=== PATIENT | male | born 1935 ===

== ENCOUNTER 2017-02-10 16:19 | Observation (INO) | payer MEDICARE ==
[2017-02-10 16:35] VITALS: BMI 28.1
--- NOTE | 2017-02-10 17:08 | ED PDOC ---
Arrival/HPI - General Chief Complaint: High Blood Pressure Time Seen by Provider: 02/10/17 16:42 Historian: Patient - History of Present Illness Narrative History of Present Illness (Text): 02/10/17 17:03 81yo male with PMHx of COPD, Anxiety, and hypertension present with complaint of elevated BP, headache, palpitation, b/l LE cramping pain and swelling x weeks. The daughter who was by the bedside states patient was on antihypertensive few years ago, but stopped. States came to ED today because of the palpitation and worsening headache. Denies fever, chills, chest pain, orthopnea, LAMBERT, calf pain, diaphoresis, abdominal pain, nausea, vomiting, dizziness, visual change, focal neurological weakness. Past Medical History - Provider Review Nursing Documentation Reviewed: Yes - Pulmonary Hx Chronic Obstructive Pulmonary Disease (COPD): Yes - Musculoskeletal/Rheumatological Hx Falls: No - Psychiatric Hx Anxiety: Yes Hx Depression: No Hx Emotional Abuse: No Hx Physical Abuse: No Hx Substance Use: No - Suicidal Assessment Feels Threatened In Home Enviroment: No Family/Social History - Physician Review Nursing Documentation Reviewed: Yes Family/Social History: Unknown Family HX Smoking Status: Never Smoked Hx Alcohol Use: No Hx Substance Use: No Hx Substance Use Treatment: No Allergies/Home Meds Allergies/Adverse Reactions: Allergies No Known Allergies Allergy (Verified 02/10/17 16:35) Home Medications: Home Meds Medication Instructions Recorded Confirmed Budesonide [Pulmicort Respules] 0.25 mg IH BID 08/21/12 02/10/17 Levalbuterol HCl [Xopenex] 1.25 mg IH Q8 PRN 08/21/12 02/10/17 Tiotropium [Spiriva] 18 mcg IH DAILY 08/21/12 02/10/17 Alprazolam [Xanax] 0.5 mg PO DAILY PRN 02/10/17 02/10/17 Aspirin [Aspirin EC] 325 mg PO DAILY 02/10/17 02/10/17 Review of Systems - Physician Review All systems were reviewed & negative as marked: Yes - Review of Systems Constitutional: Normal Eyes: Normal ENT: Normal Respiratory: Normal Cardiovascular: Palpitations, Edema. absent: Chest Pain, Calf Pain, LAMBERT, Orthopnea, Syncope Gastrointestinal: Normal Genitourinary Male: Normal Musculoskeletal: Normal Skin: Normal Neurological: Normal Endocrine: Normal Hemo/Lymphatic: Normal Psychiatric: Normal Physical Exam Vital Signs Reviewed: Yes Vital Signs Temp Pulse Resp BP Pulse Ox 02/10/17 17:34 67 16 156/88 H 98 02/10/17 16:29 98 F 67 18 198/99 H 96 Temperature: Afebrile Blood Pressure: Hypertensive Pulse: Regular Respiratory Rate: Normal Appearance: Positive for: Well-Appearing, Non-Toxic, Comfortable Pain Distress: None Mental Status: Positive for: Alert and Oriented X 3 - Systems Exam Head: Present: Atraumatic, Normocephalic Pupils: Present: PERRL Extroacular Muscles: Present: EOMI Conjunctiva: Present: Normal Mouth: Present: Moist Mucous Membranes Neck: Present: Normal Range of Motion Respiratory/Chest: Present: Clear to Auscultation, Good Air Exchange. No: Respiratory Distress, Accessory Muscle Use Cardiovascular: Present: Regular Rate and Rhythm, Normal S1, S2. No: Murmurs Abdomen: Present: Normal Bowel Sounds. No: Tenderness, Distention, Peritoneal Signs Back: Present: Normal Inspection Upper Extremity: Present: Normal Inspection. No: Cyanosis, Edema Lower Extremity: Present: Edema (2+ nonpitting edema of b/l LE) Neurological: Present: GCS=15, CN II-XII Intact, Speech Normal Skin: Present: Warm, Dry, Normal Color. No: Rashes Psychiatric: Present: Alert, Oriented x 3, Normal Insight, Normal Concentration Medical Decision Making ED Course and Treatment: 02/10/17 19:23 Pt presented for stated history. His BP improved in ED. His lab was unremarkable. EKG sinus rhythm with 1st degree AV block. No ST changes. Head CT as noted below. - Negative for acute finding CXR - NAD Result was DW both pt and the family. He expressed concern on going home and having same symptoms, usually at night. states he lives alone and worried. FINDINGS: Brain: Volume loss. Mild chronic small vessel white matter ischemic changes. Ventricles: Unremarkable. No ventriculomegaly. Bones/joints: Unremarkable. No acute fracture. Soft tissues: Unremarkable. Vasculature: Calcification in the wall of the distal internal carotid arteries. Sinuses: Ethmoid sinus mucosal thickening. No fluid levels. Mastoid air cells: Unremarkable as visualized. No mastoid effusion. IMPRESSION: No acute intracranial findings. Nonacute findings as above. 02/10/17 21:[address] Zhang. PT was placed on OBS for possible evaluation by a Realty Loan Specialist tomorrow. - Lab Interpretations Lab Results: 02/10/17 17:10 02/10/17 18:30 Lab Results 02/10/17 19:26: Urine Color Yellow, Urine Appearance Clear, Urine pH 7.5, Ur Specific [place] 1.015, Urine Protein Negative, Urine Glucose (UA) Negative, Urine Ketones Negative, Urine Blood Negative, Urine Nitrate Negative, Urine Bilirubin Negative, Urine Urobilinogen 0.2, Ur Leukocyte Esterase Negative 02/10/17 18:30: Sodium 140, Potassium 3.8, Chloride 104, Carbon Dioxide 27, Anion Gap 13, BUN 12, Creatinine 0.9, Est GFR ( Amer) > 60, Est GFR (Non- Af Amer) > 60, Random Glucose 81, Calcium 9.0, Total Bilirubin 1.0, AST 26, ALT 32, Alkaline Phosphatase 45, Lactate Dehydrogenase 529, Total Creatine Kinase 282 H, CK-MB (CK-2) 3.8 H, CK-MB (CK-2) % Cancelled, Troponin I < 0.01, NT-Pro- B Natriuret Pep 163, Total Protein 6.5, Albumin 3.7, Globulin 2.8, Albumin/ Globulin Ratio 1.3 02/10/17 17:10: PT 14.0 H, INR 1.30 H, APTT 27.3 02/10/17 17:10: WBC 4.0 L, RBC 4.25, Hgb 14.6, Hct 42.6, MCV 100.2, MCH 34.4, MCHC 34.3, RDW 13.4, Plt Count 191, MPV 9.9, Gran % 45.1 L, Lymph % (Auto) 39.8 H, [place] % (Auto) 12.8 H, Eos % (Auto) 1.8, Baso % (Auto) 0.5, Gran # 1.80, Lymph # 1.6, [place] # 0.5, Eos # 0.1, Baso # 0.02 - RAD Interpretation Radiology Orders: 02/10/17 16:50 CHEST PORTABLE [RAD] Stat 02/10/17 16:51 HEAD W/O CONTRAST [CT] Stat DUPLEX LOWER EXTRM VEIN BILAT [US] Stat Disposition/Present on Arrival - Present on Arrival Any Indicators Present on Arrival: No History of DVT/PE: No History of Uncontrolled Diabetes: No Urinary Catheter: No History of Decub. Ulcer: No History Surgical Site Infection Following: None - Disposition Have Diagnosis and Disposition been Completed?: Yes Diagnosis: Palpitation, Hypertension, Headache, Anxiety Disposition: HOSPITALIZED Disposition Time: 20:00 Patient Problems: Current Active Problems Problem Status Onset Anxiety Acute Headache Acute Hypertension Acute Palpitation Acute Condition: FAIR
--- NOTE | 2017-02-10 17:16 | RAD ---
HISTORY: SOB COMPARISON: Comparison made with chest radiograph dated 07/24/2016 FINDINGS: LUNGS: Suspect minor bibasilar atelectasis PLEURA: No significant pleural effusion identified, no pneumothorax apparent. CARDIOVASCULAR: Heart size is upper limits of normal/ borderline enlarged. Aorta is slightly ectatic and uncoiled. OSSEOUS STRUCTURES: Mild multilevel degenerative spondylosis of the thoracic spine. There is a mild dextroscoliosis centered in the lower thoracic region. VISUALIZED UPPER ABDOMEN: Normal. OTHER FINDINGS: None. IMPRESSION: Suspect minor bibasilar atelectasis.
[2017-02-10 18:03] LABS: BASO # 0.02 K/mm3 (0.0-2.0); BASO % 0.5 % (0.0-3.0); EOS # 0.1 (0.0-0.7); EOS % 1.8 % (1.5-5.0); GRAN % 45.1 % (50.0-68.0); HEMOGLOBIN 14.6 gm/dL (14.0-18.0); LYMPH # 1.6 (1.2-3.4); LYMPH % 39.8 % (22.0-35.0); MEAN CELL VOLUME 100.2 fL (80.0-105.0); MEAN CORPUSCULAR HEMOGLOBIN 34.4 pg (25.0-35.0); MEAN CORPUSCULAR HGB CONC 34.3 g/dl (31.0-37.0); MEAN PLATELET VOLUME 9.9 fl (7.0-11.0); MONO # 0.5 (0.1-0.6); MONO % 12.8 % (1.0-6.0); PLATELET COUNT 191 10^3/uL (120.0-450.0); RBC 4.25 10^6/uL (3.5-6.1); RED CELL DISTRIBUTION WIDTH 13.4 % (11.5-14.5)
[2017-02-10 18:14] LABS: INR 1.3 (0.93-1.08); PARTIAL THROMBOPLASTIN TIME 27.3 Seconds (23.7-30.8)
[2017-02-10 18:51] LABS: ALB/GLOB RATIO 1.3 (1.1-1.8); ALBUMIN 3.7 g/dL (3.0-4.8); ALT/SGPT 32 U/L (7-56); AST/SGOT 26 U/L (15-59); BLOOD UREA NITROGEN 12 mg/dL (7-21); GFR AFRICAN-AMERICAN > 60; GFR NON-AFRICAN AMERICAN > 60
[2017-02-10 19:03] LABS: B-TYPE NATRIURETIC PEPTIDE 163 pg/mL (0-450)
[2017-02-10 19:07] LABS: CK-MB 3.8 ng/mL (0.0-3.6)
[2017-02-10 19:25] LABS: TROPONIN I < 0.01 ng/mL
[2017-02-10 20:09] LABS: PH,URINE 7.5 (4.7-8.0); URINE BILIRUBIN NEGATIVE (NEGATIVE); URINE BLOOD NEGATIVE (NEGATIVE); URINE GLUCOSE (UA) NEGATIVE (NEGATIVE); URINE LEUKOCYTE ESTERASE NEGATIVE Leu/uL (NEGATIVE); URINE NITRATE NEGATIVE (NEGATIVE); URINE PROTEIN NEGATIVE mg/dL (<30 mg/dL); URINE UROBILINOGEN 0.2 E.U./dL (<1 E.U./dL)
[2017-02-10 20:17] LABS: URINE APPEARANCE CLEAR (CLEAR); URINE COLOR YELLOW (YELLOW)
[2017-02-11] MEDS ORDERED: Pneumococcal 23-Valent Vaccine IM ONE (00:58)
[2017-02-11] MEDS ORDERED: Pantoprazole 40 mg EC Tab PO SCH (06:30)
--- NOTE | 2017-02-11 07:19 | CT ---
PROCEDURE: CT HEAD WITHOUT CONTRAST. HISTORY: Headache COMPARISON: None available. TECHNIQUE: Axial computed tomography images were obtained through the head/brain without intravenous contrast. Radiation dose: Total exam DLP = 774.23 mGy-cm. This CT exam was performed using one or more of the following dose reduction techniques: Automated exposure control, adjustment of the mA and/or kV according to patient size, and/or use of iterative reconstruction technique. FINDINGS: HEMORRHAGE: No intracranial hemorrhage. BRAIN: There are mild chronic microangiopathic changes. There is no mass, mass effect or abnormal extra-axial fluid collection. There is no territorial infarction. VENTRICLES: There is mild age-related global parenchymal volume loss and proportionate enlargement of the ventricles and cortical sulci. CALVARIUM: The skull base and calvarium are normal. PARANASAL SINUSES: Predominantly clear MASTOID AIR CELLS: Predominantly clear. OTHER FINDINGS: None. IMPRESSION: No acute intracranial abnormality. Mild chronic microangiopathic changes and mild age-related global parenchymal volume loss.
[2017-02-11 07:28] LABS: ALB/GLOB RATIO 1.4 (1.1-1.8); ALBUMIN 3.8 g/dL (3.0-4.8); ALT/SGPT 31 U/L (7-56); AST/SGOT 29 U/L (15-59); BLOOD UREA NITROGEN 11 mg/dL (7-21); CALCIUM 8.9 mg/dL (8.4-10.5); GFR AFRICAN-AMERICAN > 60; GFR NON-AFRICAN AMERICAN > 60; HDL CHOLESTEROL 70 mg/dL (29-60)
[2017-02-11 07:39] LABS: LDL CHOLESTEROL 115 mg/dL (0-129)
[2017-02-11] MEDS: Budesonide 0.25 mg/2 ml Inhal Susp UD IH SCH ×2 (07:42→19:44)
[2017-02-11 07:47] LABS: FREE T4 1.08 ng/dL (0.78-2.19)
[2017-02-11 08:23] LABS: TROPONIN I < 0.01 ng/mL
[2017-02-11 08:25] LABS: CK-MB 4.3 ng/mL (0.0-3.6)
--- NOTE | 2017-02-11 08:57 | US ---
HISTORY: Leg pain and swelling. Evaluate for DVT PHYSICIAN(S): Lam Grider MD. TECHNIQUE: Duplex sonography and color-flow Doppler with graded compression were used to evaluate the deep venous systems of both lower extremities. FINDINGS: The visualized deep venous systems of both lower extremities are sonographically normal and compressible. Normal wave forms and augmentation are seen. There is no sonographic evidence for deep venous thrombosis in the visualized segments of both lower extremities. IMPRESSION: No sonographic evidence for deep venous thrombosis in the visualized segments of both lower extremities.
[2017-02-11] MEDS: Metoprolol Succinate 25 mg XL Tab PO SCH (09:02)
[2017-02-11] MEDS ORDERED: Aminophylline 25 mg/ml Inj ONE (11:21)
[2017-02-11] MEDS: Aspirin 325 mg EC Tablets PO SCH (14:38)
[2017-02-11] MEDS: Tiotropium 18 mcg Cap For Inhalation IH SCH (14:39)
--- NOTE | 2017-02-11 17:17 | CARD ---
APPROVED REPORT EKG Measurement Heart [id number] <Conclusion> Sinus rhythm with 1st degree AV block Otherwise normal ECG
[2017-02-11 18:28] VITALS: RESP 18
--- NOTE | 2017-02-11 19:08 | CARD ---
APPROVED REPORT EXAM: Two-dimensional and M-mode echocardiogram with Doppler and color Doppler. INDICATION Chest Pain 2D DIMENSIONS Left Atrium (2D)4.2 (1.6-4.0cm)IVSd1.3 (0.7-1.1cm) LVDd3.4 (3.9-5.9cm)PWd1.1 (0.7-1.1cm) LVDs2.2 (2.5-4.0cm)FS (%) 36.0 % LVEF (%)66.8 (>50%) M-Mode DIMENSIONS Aortic Root2.40 (2.2-3.7cm)Aortic Cusp Exc.1.30 (1.5-2.0cm) Aortic Valve AoV Peak Abaqrdpk917.0cm/Kassandra Peak GR.8mmHg Mitral Valve MV E Jbalehkz21.7cm/sMV A Bhogngim054.0cm/sE/A ratio0.6 TDI E/Lateral E'0.0E/Medial E'0.0 Tricuspid Valve TR Peak Jyoxszqh191kd/sRAP [id number] Peak Gr.14mmHg [id number] LEFT VENTRICLE The left ventricle is normal size. There is borderline to mild concentric left ventricular hypertrophy. The left ventricular function is normal. EF-55-60% There is normal LV segmental wall motion. Transmitral Doppler flow pattern is Grade III-reversible restrictive diastolic dysfunction. No left ventricle thrombus noted on this study. There is no ventricular septal defect visualized. There is no left ventricular aneurysm. There is no mass noted in the left ventricle. RIGHT VENTRICLE The right ventricle is normal size. There is normal right ventricular wall thickness. The right ventricular systolic function is normal. ATRIA The left atrium is mildly dilated. The right atrium size is normal. The interatrial septum is intact with no evidence for an atrial septal defect. AORTIC VALVE The aortic valve is thickened but opens well. The aortic valve is moderately sclerotic. There is trace aortic regurgitation. There is no aortic valvular stenosis. There is no aortic valvular vegetation. MITRAL VALVE The mitral valve is thickened but opens well. Mitral regurgitation is trace. There is no mitral valve stenosis. There is no evidence of mitral valve prolapse. TRICUSPID VALVE The tricuspid valve leaflets are thickened , but open well. There is trace to mild tricuspid regurgitation.RVSP-24mmof hg. There is no tricuspid valve stenosis. There is no tricuspid valve prolapse or vegetation. PULMONIC VALVE The pulmonic valve is mildly thickened. There is trace pulmonic valvular regurgitation. There is no pulmonic valvular stenosis. GREAT VESSELS The aortic root is normal in size. The ascending aorta is normal in size. The pulmonary artery is normal. The IVC is normal in size and collapses >50% with inspiration. PERICARDIAL EFFUSION There is no pleural effusion. There is no pericardial effusion. <Conclusion> The left ventricle is normal size. There is borderline to mild concentric left ventricular hypertrophy. The left ventricular function is normal. EF-55-60% There is trace aortic regurgitation. There is no aortic valvular stenosis. Mitral regurgitation is trace. There is trace to mild tricuspid regurgitation.RVSP-24mmof hg. The IVC is normal in size and collapses >50% with inspiration. TDS poor sonic window.
[2017-02-11] MEDS ORDERED: Simethicone 40 mg/0.6 ml Liquid (30 ml) PO STA (19:22)
--- NOTE | 2017-02-11 21:25 | CARD ---
APPROVED REPORT Protocol: LEXISCAN Test Type: Lexiscan Sestamibi Stress Test Attending Physician: Dr. Sherri Kruger Referring Physician: Dr. Gibson Reagan Test Indications: Chest Pain Height:5 ft 7 in Weight:180lbs Medications: Xanax, Aspirin, Budesonide, Metoprolol, Protonix, Spiriva Medical History: 81 y/o male with a history of htn, COPD, anxiety disorder Target HR: 139 bpm Resting ECG: RSR. Resting Heart Rate: 61 bpm Resting Blood Pressure: 132/84mmHg Submaximum (85%): 118 bpm PROCEDURE Pharmacologic stress testing was performed using 0.4mg per 5ml of regadenoson given intravenously over 7-10 seconds. Reversal agent aminophyline 150 mg, given intravenously for Chest Pain. POST EXERCISE Reason for Termination: Protocol completed Target HR: No Max HR: 63 bpm 83% of Maximum Predicted HR: 139 bpm Exercise duration: 00:31 min:sec, 0 Stage Exercise capacity: 1.0METs Max Blood Pressure: 142/76mmHg Blood Pressure response to exercise: normal resting BP - appropriate response Heart Rate response to exercise: appropriate Chest Pain: Yes, Freedom Pressure like Chest Pain. Angina index: 0 Arrhythmia: No, none ST Change: No, none Deviation: 0 mm INTERPRETATION Stress EKG Conclusion: IV LEXISCAN NUCLEAR STRESS TEST DURING WHICH PATIENT FELT PRESSURE LIKE CHEST PAIN. NO ST-T CHANGES SEEN. NUCLEAR SCAN REPORT PENDING. Signed by Sherri Kruger Electronically Approved: 02/11/2017 13:01:44 EXAM: Myocardial Perfusion REST/STRESS Stress Test Type: Pharmacologic Imaging Protocol Rest Spect myocardial perfusion imaging was performed in supine position 55 minutes following the injection of 10.9 mCi of Tc-99 Myoview. At peak stress, the patient was injected intravenously with 30.4mCi of Tc-99 tetrofosmin after an infusion time of 0 minutes and 10 seconds. Gated Stress Spect was performed 65 minutes after intravenous Tc-99 Myoview injection. The images were gated to evaluate regional wall motion and calculate ventricular ejection fraction.Images were reconstructed using backfilter projection method in short horizontal and verticle long axis. Spect slices were generated. LV Perfusion The quality of the study is good. The left ventricle is normal in size. The right ventricle is unremarkable. The lung uptake is within normal limits. The distribution of tracer reveals normal uptake pattern throughout the LV myocardium on the stress study. The rest myocardial perfusion study shows no significant change. Wall Motion Wall motion study shows good contractility of the left ventricle. LVEF = 76%. Conclusion 1. Normal SPECT myocardial perfusion study. 2. Normal gated wall motion of the left ventricle. 3. In comparison with the last study of 09/11/2012, there is no significant change
[2017-02-12] MEDS: Levalbuterol 1.25 MG/3 ML Inhal Soln UD IH SCH ×3 (01:10→13:15)
--- NOTE | 2017-02-12 01:14 | HP ---
HISTORY OF PRESENT ILLNESS: The patient is an 81-year-old was brought to emergency room by the family. He thought his blood pressure was high. He was feeling anxious. He did have miscellaneous complaints including palpitation and he was having headache. He also mentioned that his legs were cramping off and on for a week. According to daughters, the patient used to be on antihypertensive, but it was stopped by his physician. The patient denies any fever, chills. No nausea, vomiting or diarrhea. PAST MEDICAL HISTORY: Significant for hypertension, COPD, history of anxiety disorder. ALLERGIES: Not allergic to any medication. MEDICATION AT HOME: He is on Pulmicort, he is on Xopenex, Xanax 0.5 mg b.i.d. p.r.n., aspirin 325 mg daily, Spiriva 18 mcg daily. REVIEW OF SYSTEMS: Significant for feeling anxious and palpitation off and on. PHYSICAL EXAMINATION GENERAL: He is awake and alert, communicative. VITAL SIGNS: He is afebrile, pulse 63, respirations 20, blood pressure 149/93. LUNGS: Bilateral fair airflow. No rhonchi or crackles. HEART: S1 and S2 audible. ABDOMEN: Soft, nontender. No hepatosplenomegaly. NEUROLOGIC: The patient is awake and alert, able to communicate. LABORATORY DATA: WBC is 4.0, hemoglobin 14, hematocrit 42, platelets 191. PT is 14.0 and INR 1.03. Chemistry; Sodium 140, potassium 4.1, chloride 106, CO2 of 24, BUN 11, creatinine 0.8, blood sugar of 78. CPK 271, MB is 4.3. Two sets of troponins are negative. Urinalysis is unremarkable. CT scan of the head is negative. Bilateral leg Doppler negative for DVT. CT of the head only shows chronic microangiopathic changes that is with global parenchymal loss. There is no sonographic evidence of deep venous thrombosis in the visualized segment on both lower extremities. ASSESSMENT: 1. Chest pain. 2. Palpitations. 3. Headache. 4. Hypertension. 5. Hyperlipidemia. 6. History of chronic obstructive pulmonary disease. PLAN: We are going to start the patient on metoprolol and start him on losartan. The patient is currently having stress test. If his stress test is okay, he can be discharged later on today and he will follow up with his PMD within a week or two. Gibson Reagan MD [facility] # [id number]
[2017-02-12 05:55] VITALS: O2SAT 99
[2017-02-12] MEDS ORDERED: Pantoprazole 40 mg EC Tab PO SCH (06:00)
[2017-02-12] MEDS: Budesonide 0.25 mg/2 ml Inhal Susp UD IH SCH (07:43)
[2017-02-12] MEDS: Metoprolol Succinate 25 mg XL Tab PO SCH (08:16)
--- NOTE | 2017-02-12 08:44 | PN ---
DATE: 02/11/2017 REASON FOR THE CONSULTATION AND FOLLOWUP: Shortness of breath, difficulty in sleeping, emphysema and COPD. BRIEF CLINICAL HISTORY: This is an 81-year-old male with a past medical history of COPD, asthma, emphysema, anxiety disorder, hypertension, came in with a complaint of difficulty in sleeping, sleeps for 2 hours a day, shortness of breath. Denies any chest pain. Denies any palpitation. Sometimes also complains of dyspnea on exertion and chest pain on exertion on walking 2 to 3 blocks. Denies any PND or orthopnea. PAST MEDICAL HISTORY: Significant for COPD and emphysema. SOCIAL HISTORY: Denies any smoking. Denies any history of alcohol abuse.. PAST SURGICAL HISTORY: Significant for hernia surgery many years ago. History of *------* 5 years ago. CURRENT MEDICATIONS: The patient is taking Pulmicort, aspirin, Xanax, Spiriva and Xopenex. ALLERGIES: NO KNOWN DRUG ALLERGIES. REVIEW OF SYSTEMS: As per HPI. PHYSICAL EXAMINATION VITAL SIGNS: Temperature afebrile, heart rate 66, blood pressure 149/93. HEENT: PERRLA. Extraocular muscles intact. NECK: Supple. No carotid bruit or thyromegaly CHEST: Clear to auscultation. HEART: S1 and S2 regular. ABDOMEN: Soft. EXTREMITIES: Clubbing and cyanosis negative. LABORATORY DATA: Blood workup as follows: Chemistry shows sodium 140, potassium 4.0, chloride 106, carbon dioxide 24, anion gap of 14, BUN 11 and creatinine 0.8. Troponin 0.01. Total protein 6.4, albumin 3.8, albumin globulin ratio 1.4. Cholesterol; LDL 199, HDL 470, TSH 0.22. WBC 4, hemoglobin 14.3, hematocrit 42.6 and platelet count 191. IMPRESSION: Asthma, chronic obstructive pulmonary disease, so far no evidence of myocardial infarction, uncontrolled hypertension, obesity. RECOMMENDATION: Get echo stress test, lipid profile, TSH and hemoglobin A1c. Further recommendation upon initial workup. We will follow with you. Thank you *------* in taking care of Mark Hillman. Sherri Hutchinson MD [facility] # [id number]
[2017-02-12] MEDS: Aspirin 325 mg EC Tablets PO SCH (10:17)
[2017-02-12] MEDS: Tiotropium 18 mcg Cap For Inhalation IH SCH (10:17)
[2017-02-12 11:50] VITALS: BP 113/71; PULSE 67; TEMP 98.3
[2017-02-12] MEDS ORDERED: Barium Sulfate Susp 2.1% w/v, 2.0% w/w 450 mL Bottle PO ONE (12:14)
--- NOTE | 2017-02-12 17:16 | PN ---
DATE: 02/12/2017 REASON FOR CONSULTATION AND FOLLOWUP: Shortness of breath, difficulty in sleeping, emphysema, COPD, rule out underlying coronary artery disease. BRIEF CLINICAL HISTORY: This is an 81-year-old male with past medical history significant for COPD, asthma, emphysema, anxiety disorder, hypertension, came in with complaint of difficulty in sleeping, sleeps for two hours and wakes up with shortness of breath. Denies any chest pain. Denies any palpitation. The patient underwent an echo and a stress test which was negative. Still complained of difficulty in sleeping. PHYSICAL EXAMINATION: As follows, VITAL SIGNS: Temperature afebrile, heart rate 63, blood pressure 113/75. HEENT: PERRLA. EOM intact. NECK: Supple. No carotid bruit. No thyromegaly. CARDIOPULMONARY: Heart S1, S2, regular. LUNGS: Chest clear to auscultation. ABDOMEN: Soft. EXTREMITIES: Clubbing and cyanosis negative. LABORATORY DATA: Blood workup, WBC 4, hemoglobin 14.6, hematocrit 42.6, platelet count 191. Chemistry shows sodium 140, potassium 4.0, chloride 106, carbon dioxide 24, and anion gap of 14, BUN 11, creatinine 0.8, troponin 0.01. No evidence of acute LA. TSH 1.22. Cholesterol total 199, LDL 115, HDL 70, triglycerides 57. On 02/11/2017, normal myocardial perfusion study in comparison to last study 09/11/2012, there is no significant change. Ejection fraction reported at 76%. The patient had echocardiography done yesterday that showed ejection fraction 55% to 60%, no aortic valve stenosis, trace aortic regurgitation, [id number] tricuspid regurgitation with pressure of 24, trace mitral regurgitation. IMPRESSION: An 81-year-old male with a past medical history significant for chronic obstructive pulmonary disease, asthma, emphysema, anxiety disorder, admitted with difficulty in sleeping and underwent noninvasive workup to rule out coronary artery disease as well as negative myocardial perfusion study, preserved left ventricular function, unchanged from 2013. Echocardiogram shows preserved left ventricular function, trace mitral regurgitation, trace tricuspid regurgitation, trace aortic regurgitation. No evidence of aortic stenosis, hypertension, hyperlipidemia. RECOMMENDATION: Strongly consider sleep study and pulmonary evaluation. We will discontinue telemetry, further recommendation on the hospital course *------* stable. No further cardiac workup is planned or warranted. Sherri Hutchinson MD [facility] # [id number]
--- NOTE | 2017-02-12 17:18 | CT ---
PROCEDURE: CT Abdomen and Pelvis with contrast HISTORY: abdominal distention COMPARISON: None. TECHNIQUE: Contrast dose: Spell IUD Radiation dose: Total exam DLP = mGy-cm. This CT exam was performed using one or more of the following dose reduction techniques: Automated exposure control, adjustment of the mA and/or kV according to patient size, and/or use of iterative reconstruction technique. FINDINGS: LOWER THORAX: Unremarkable. LIVER: Unremarkable. No gross lesion or ductal dilatation. GALLBLADDER AND BILE DUCTS: Cholelithiasis without CT evidence of acute cholecystitis. PANCREAS: Unremarkable. No gross lesion or ductal dilatation. SPLEEN: Unremarkable. ADRENALS: Unremarkable. No mass. KIDNEYS AND URETERS: Unremarkable. No hydronephrosis. No solid mass. VASCULATURE: Unremarkable. No aortic aneurysm. BOWEL: Unremarkable. No obstruction. No gross mural thickening. Diverticulosis without an acute inflammatory component or other associated pathologic process. APPENDIX: Normal appendix. PERITONEUM: Unremarkable. No free fluid. No free air. LYMPH NODES: Unremarkable. No enlarged lymph nodes. BLADDER: Unremarkable. REPRODUCTIVE: Unremarkable. BONES: No acute fracture. OTHER FINDINGS: None. IMPRESSION: Cholelithiasis without CT evidence of acute cholecystitis. Otherwise unremarkable study.
--- NOTE | 2017-02-13 03:18 | CON ---
REASON FOR CONSULTATION: Seen and examined at the bedside earlier today, request for consult is for abdominal bloating. HISTORY OF PRESENT ILLNESS: This is an 81-year-old male with a past medical history of COPD, anxiety, and hypertension, brought to the emergency room by his family for elevated blood pressure. The patient also was complaining of shortness of breath, palpitations, and feeling anxious. The patient had a stress test yesterday, which was normal. The patient complained yesterday of abdominal bloating even after bowel movement. The patient reports that he gets intermittent abdominal bloating for at least the past 2 months, but noticed that it is more frequent when he does have a bowel movement, it is formed stool, but he passes a lot of gas. Denies any nausea. No vomiting. No complaints of abdominal pain or symptoms of dyspepsia. He did have a colonoscopy at least 6 years ago for screening and does not recall any polyps or other acute findings. Denies any weight loss or loss of appetite. No complaints of postprandial abdominal bloating. The patient states that he had allergy test done a few years ago and he was told to stay away from milk and shrimp, but he still consumes milk and eats ice-cream with no problems and occasionally does have shrimp and no allergic reactions as per the patient. PAST MEDICAL HISTORY: As stated above, COPD, anxiety, and hypertension. The patient is currently off antihypertensive medication. SURGICAL HISTORY: He had a hernia repair. SOCIAL HISTORY: Denies any history of smoking. Drinks alcohol socially. Denies any substance abuse. FAMILY HISTORY: Mother with Alzheimer's. He had a son who had liver disease and at age 47. ALLERGIES: No known drug allergies. MEDICATIONS: Reviewed as per SEP. REVIEW OF SYSTEMS: Systems reviewed with positive findings, see HPI. PHYSICAL EXAMINATION: VITAL SIGNS: Temperature is 98.3, blood pressure is 113/71, pulse 67, respirations 18, 99% on room air. HEENT: Sclerae are anicteric. NECK: Supple. CARDIAC: S1, S2. LUNGS: With decrease breath sounds, but good air entry. No rales or wheezes. ABDOMEN: With bowel sounds, it is distended, but soft. Nontender on deep palpation. No rebound, guarding, or organomegaly. EXTREMITIES: Positive pedal pulses. No edema. NEUROLOGIC: Awake, alert, and oriented. LABORATORY DATA: CBC drawn on 02/10/2017, WBC 4.0, H and H are 14.6 and 42.6, platelets are 191. PT is 14.0, INR is 1.30, PTT 27.3. Chemistry, this is reviewed from 02/11/2017, sodium 140, potassium 4.1, BUN 11, creatinine 0.8. LFTs are within normal limits. His last total CK is 271. The CK-MB is 43. Troponin is negative x2. Albumin is 3.8. He had thyroid panel done and his free T4 is 1.08, TSH is 1.22. Urine: Leukocyte esterase is negative; negative for blood, protein, and glucose. The patient did have a head CT done on admission for headache and it showed chronic microangiopathic changes, no mass, no acute intracranial abnormality. ASSESSMENT: This is an 81-year-old male with a past medical history of hypertension, currently off antihypertensives as per his doctor's orders; history of chronic obstructive pulmonary disease; and anxiety disorder, who comes to the emergency room with complaints of shortness of breath, chest pain, and palpitations. He had a stress test done, which was negative. He did complain of abdominal bloating. Last colonoscopy was about 6 years ago with no acute findings. The patient states he has had allergy tests and was told to stay away from milk and shrimp, but the patient actively eats these things with no complaints. PLAN: We will request for celiac disease panel and request for CT scan of the abdomen and pelvis with only oral contrast for further evaluation. After review of this, the patient may benefit from GI workup, which can be done as an outpatient. I spoke to the patient regarding this. He will likely be discharged today. He can follow up in our outpatient office. Thank you for this consult and for allowing us to participate in your patient's care. We will make further recommendations based upon the patient 's clinical course. The patient was seen and case discussed with Dr. Hutchinson. RUEL Keys
--- NOTE | 2017-02-13 07:34 | DS ---
HISTORY OF PRESENT ILLNESS: The patient is 81 years old, seen and examined, complained of feeling lightheaded, otherwise, no chest pain, no shortness of breath. Complained of having white coating on the tongue. No chest pain. No shortness of breath. No cough. No congestion. PHYSICAL EXAMINATION: VITAL SIGNS: He is afebrile, pulse 67, respirations 18 and blood pressure 113/71. LUNGS: Bilateral fair airflow. No rhonchi or crackle. HEART: S1 and S2 audible. ABDOMEN: Soft and nontender. No rebound. No guarding. NEUROLOGIC: He is awake and alert, communicative. LABORATORY DATA: Two sets of cardiac enzymes are negative. Stress test is unremarkable. Urinalysis is unremarkable. CT scan of the head is negative. ASSESSMENT: 1. Uncontrolled hypertension. Upon arrival in the emergency room, his blood pressure was 198/99. The patient states he was on blood pressure medications, then he was taken off of it. However, today he looks hemodynamically stable. Chest pain, pressure and palpitation probably secondary to uncontrolled hypertension. Stress test is negative. 2. History of hypertension. 3. Palpitation. Although it is a subjective feeling, however, the patient's heart rate has been under good control. 4. History of chronic obstructive pulmonary disease. 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 PLAN: The patient is going to be discharged home on Norvasc 5 mg daily. The patient is familiar with that medicine. He has taken it in the past, so he was given prescription of 5 mg Norvasc daily. He was given prescription of metoprolol 25 at bedtime, and he is being discharged on Mycelex Jennifer to use every 4 to 5 hours for a week, and he will follow with Dr. Call as an outpatient. Gibson Reagan MD
== END 2017-02-12 17:40 | disposition home or self-care (01) ==
LOC: ED 16:19 → ERH 20:05 → 2RNO 22:27
PROVIDERS: ADMIT Internal Medicine; ATTEND Internal Medicine
DX: R00.2 Palpitations (principal); I10 Essential (primary) hypertension; R51 Headache; F41.9 Anxiety disorder, unspecified; J44.9 Chronic obstructive pulmonary disease, unspecified
CPT/HCPCS: 36415; 70450; 71010; 74176; 78452; 80053; 80061; 81003; 82550; 82553; 82784; 83036; 83516; 83615; 83880; 84439; 84443; 84484; 85025; 85610; 85730; 93005; 93017; 93306; 93970; 94640; 94760; 97116; 97161; 99285; A9502; G0378; G8978; G8979; G8980

== ENCOUNTER 2018-04-29 09:10 | Emergency (ER) | payer MEDICARE ==
[2018-04-29 09:10] VITALS: BMI 28.1
--- NOTE | 2018-04-29 09:40 | ED PDOC ---
Arrival/HPI - General Chief Complaint: High Blood Pressure Time Seen by Provider: 04/29/18 09:15 Historian: Patient, Family (Son) - History of Present Illness Time/Duration: Other (Several days) Symptom Onset: Gradual Symptom Course: Unchanged Quality: Aching Severity Level: Mild Associated Symptoms (Text): 04/29/18 09:32 Patient complains of a several day history of a posterior headache. He reports that he has been having trouble sleeping. He has no trouble falling asleep, but he has trouble staying asleep. The patient's son pulled me aside and reported that the patient has a history of sleep apnea and has a CPAP machine which he does not use. He has chronic shortness of breath, no different from usual. No chest pain. No abdominal pain nausea or vomiting. No numbness tingling or paresthesias. There is generalized, but no focal, weakness. No head trauma. No neck pain. No fever or chills. No cough congestion or URI. He also had elevated blood pressure for the last several days. He states that he gets anxious. Past Medical History - Provider Review Nursing Documentation Reviewed: Yes - Infectious Disease Hx of Infectious Diseases: None - Cardiac Hx Cardiac Disorders: Yes Hx Hypertension: Yes - Pulmonary Hx Respiratory Disorders: Yes Hx Emphysema: Yes Other/Comment: Pt. has respiratory MD. - Neurological Hx Neurological Disorder: No - HEENT Hx HEENT Disorder: No Other/Comment: Pt. observed to have mild [place]. - Renal Hx Renal Disorder: No - Endocrine/Metabolic Hx Endocrine Disorders: No - Hematological/Oncological Hx Blood Disorders: No - Integumentary Hx Dermatological Disorder: No - Musculoskeletal/Rheumatological Hx Musculoskeletal Disorders: No Hx Falls: No - Gastrointestinal Hx Gastrointestinal Disorders: No - Genitourinary/Gynecological Hx Genitourinary Disorders: No - Psychiatric Hx Psychophysiologic Disorder: Yes Hx Anxiety: Yes Hx Substance Use: No - Anesthesia Hx Anesthesia: No Hx Anesthesia Reactions: No - Suicidal Assessment Feels Threatened In Home Enviroment: No Family/Social History - Physician Review Nursing Documentation Reviewed: Yes Family/Social History: Unknown Family HX Smoking Status: Never Smoked Hx Alcohol Use: No Hx Substance Use: No Hx Substance Use Treatment: No Allergies/Home Meds Allergies/Adverse Reactions: Allergies No Known Allergies Allergy (Verified 02/10/17 16:35) Home Medications: Home Meds Medication Instructions Recorded Confirmed Budesonide [Pulmicort Respules] 0.25 mg IH BID 08/21/12 04/29/18 Tiotropium [Spiriva] 18 mcg IH DAILY 08/21/12 04/29/18 Alprazolam [Xanax] 0.5 mg PO DAILY PRN 02/10/17 04/29/18 Escitalopram [Lexapro] 10 mg PO DAILY 04/29/18 04/29/18 Review of Systems - Physician Review All systems were reviewed & negative as marked: Yes - Review of Systems Constitutional: absent: Fatigue, Fevers Respiratory: SOB. absent: Cough, Sputum, Wheezing Cardiovascular: absent: Chest Pain, Palpitations, Syncope Gastrointestinal: absent: Abdominal Pain, Constipation, Diarrhea, Nausea, Vomiting, Anorexia Genitourinary Male: absent: Dysuria, Frequency, Hematuria Neurological: Headache. absent: Dizziness, Focal Weakness, Gait Changes Physical Exam Vital Signs Reviewed: Yes Vital Signs Temp Pulse Resp BP Pulse Ox 04/29/18 09:23 98.1 F 90 18 156/106 H 98 Temperature: Afebrile Blood Pressure: Hypertensive Pulse: Regular Respiratory Rate: Normal Appearance: Positive for: Well-Appearing, Non-Toxic, Comfortable Pain Distress: None Mental Status: Positive for: Alert and Oriented X 3 - Systems Exam Head: Present: Atraumatic, Normocephalic Pupils: Present: PERRL Extroacular Muscles: Present: EOMI Conjunctiva: Present: Normal Mouth: Present: Moist Mucous Membranes Pharnyx: No: ERYTHEMA, EXUDATE, TONSILS ENLARGED Neck: Present: Normal Range of Motion Respiratory/Chest: Present: Clear to Auscultation, Good Air Exchange. No: Respiratory Distress, Accessory Muscle Use Cardiovascular: Present: Regular Rate and Rhythm, Normal S1, S2. No: Murmurs Abdomen: No: Tenderness, Distention, Peritoneal Signs, Rebound, Guarding Upper Extremity: Present: Normal Inspection. No: Cyanosis, Edema Lower Extremity: Present: Edema (1+ bilateral lower extremity edema) Neurological: Present: GCS=15, CN II-XII Intact, Speech Normal, Motor Func Grossly Intact Skin: Present: Warm, Dry, Normal Color. No: Rashes Psychiatric: Present: Alert, Oriented x 3, Normal Insight, Normal Concentration Medical Decision Making ED Course and Treatment: 10/02/18 10:45 EKG shows normal sinus rhythm rate approximately 60 with a primary AV block and no acute ST or T-wave changes - RAD Interpretation Radiology Orders: CT scan of the head as read by the radiologist shows no acute findings. X-ray chest one view as read by the radiologist shows no acute findings. CTA of the chest is read by the radiologist as negative for pulmonary embolus and positive for cholelithiasis with no evidence of acute cholecystitis. Director Social Welfare: Radiologist - EKG Interpretation Interpreted by ED Physician: Yes Type: 12 lead EKG - Scribe Statement The provider has reviewed the documentation as recorded by the Scribe Sharon Turkjh All medical record entries made by the Scribe were at my direction and personally dictated by me. I have reviewed the chart and agree that the record accurately reflects my personal performance of the history, physical exam, medical decision making, and the department course for this patient. I have also personally directed, reviewed, and agree with the discharge instructions and disposition. Disposition/Present on Arrival - Present on Arrival Any Indicators Present on Arrival: No History of DVT/PE: No History of Uncontrolled Diabetes: No Urinary Catheter: No History of Decub. Ulcer: No History Surgical Site Infection Following: None - Disposition Have Diagnosis and Disposition been Completed?: Yes Diagnosis: Chronic obstructive lung disease, Headache, Hypertension, Anxiety, Insomnia Disposition: HOME/ ROUTINE Disposition Time: 13:13 Patient Plan: Discharge Condition: GOOD Discharge Instructions (ExitCare): Tension Headache, High Blood Pressure in Adults, Chronic Obstructive Pulmonary Disease (COPD), Including Emphysema Additional Instructions: Use your CPAP machine as prescribed. Tylenol or Advil as directed on bottle as needed. Follow-up with PMD. Follow up in ER as needed. Referrals: Saman Call MD [Family Provider] - Follow up with primary Forms: [employer] ([place]ak[place])
[2018-04-29 10:33] LABS: BASO # 0.02 K/mm3 (0.0-2.0); BASO % 0.5 % (0.0-3.0); EOS # 0.2 (0.0-0.7); EOS % 4.5 % (1.5-5.0); GRAN # 1.69 (1.4-6.5); GRAN % 40.4 % (50.0-68.0); HEMOGLOBIN 14.6 g/dL (14.0-18.0); LYMPH # 1.7 (1.2-3.4); LYMPH % 41.4 % (22.0-35.0); MEAN CELL VOLUME 101.2 fl (80.0-105.0); MEAN CORPUSCULAR HEMOGLOBIN 34.7 pg (25.0-35.0); MEAN CORPUSCULAR HGB CONC 34.3 g/dl (31.0-37.0); MEAN PLATELET VOLUME 9.3 fl (7.0-11.0); MONO # 0.6 (0.1-0.6); MONO % 13.2 % (1.0-6.0); RBC 4.21 10^6/uL (3.5-6.1); RED CELL DISTRIBUTION WIDTH 13.5 % (11.5-14.5); WHITE BLOOD COUNT 4.2 10^3/ul (4.5-11.0)
[2018-04-29 10:36] LABS: PH,URINE 7.5 (4.7-8.0); URINE APPEARANCE CLEAR (CLEAR); URINE BILIRUBIN NEGATIVE (NEGATIVE); URINE BLOOD NEGATIVE (NEGATIVE); URINE COLOR LIGHT YELLOW (YELLOW); URINE GLUCOSE (UA) NEGATIVE (NEGATIVE); URINE LEUKOCYTE ESTERASE NEGATIVE Leu/uL (NEGATIVE); URINE PROTEIN NEGATIVE mg/dL (<30 mg/dL); URINE UROBILINOGEN 0.2 E.U./dL (<1 E.U./dL)
--- NOTE | 2018-04-29 10:37 | CT ---
Date of service: 04/29/2018 PROCEDURE: CT HEAD WITHOUT CONTRAST. HISTORY: Headache COMPARISON: 02/10/2017. TECHNIQUE: Axial computed tomography images were obtained through the head/brain without intravenous contrast. Radiation dose: Total exam DLP = 774.23 mGy-cm. This CT exam was performed using one or more of the following dose reduction techniques: Automated exposure control, adjustment of the mA and/or kV according to patient size, and/or use of iterative reconstruction technique. FINDINGS: HEMORRHAGE: No intracranial hemorrhage. 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 There are mild chronic microangiopathic changes. There is no mass, mass effect or abnormal extra-axial fluid collection. VENTRICLES: There is mild age-related global parenchymal volume loss and proportionate enlargement of the ventricles and cortical sulci. CALVARIUM: The skull base and calvarium are normal. PARANASAL SINUSES: Predominantly clear. MASTOID AIR CELLS: Predominantly clear. OTHER FINDINGS: None. IMPRESSION: No acute intracranial abnormality. No other significant interval change.
--- NOTE | 2018-04-29 10:38 | RAD ---
Date of service: 04/29/2018 HISTORY: Shortness of breath COMPARISON: 02/06/2018. FINDINGS: LUNGS: The lungs are well inflated and clear. PLEURA: No significant pleural effusion identified, no pneumothorax apparent. CARDIOVASCULAR: Normal. OSSEOUS STRUCTURES: No significant abnormalities. VISUALIZED UPPER ABDOMEN: Normal. OTHER FINDINGS: None. IMPRESSION: No active pulmonary disease.
[2018-04-29 10:41] LABS: ALB/GLOB RATIO 1.5 (1.1-1.8); ALBUMIN 4.4 g/dL (3.0-4.8); ALT/SGPT 34 U/L (7-56); AST/SGOT 34 U/L (17-59); BLOOD UREA NITROGEN 8 mg/dL (7-21); CALCIUM 9.6 mg/dL (8.4-10.5); GFR NON-AFRICAN AMERICAN > 60
[2018-04-29 10:42] LABS: INR 1.09; PARTIAL THROMBOPLASTIN TIME 28.6 Seconds (25.1-36.5); PROTHROMBIN TIME 12.5 SECONDS (9.4-12.5)
[2018-04-29 10:49] VITALS: RESP 18
[2018-04-29 10:53] LABS: B-TYPE NATRIURETIC PEPTIDE 162 pg/mL (0-450); TROPONIN I < 0.01 ng/mL
--- NOTE | 2018-04-29 11:20 | CARD ---
APPROVED REPORT Date of service: 04/29/2018 EKG Measurement Heart [id number] <Conclusion> Sinus rhythm with 1st degree AV block Otherwise normal ECG
[2018-04-29] MEDS ORDERED: Iohexol 350 MG/100 ML VIAL ONE (11:21)
--- NOTE | 2018-04-29 12:37 | CT ---
Date of service: 04/29/2018 PROCEDURE: CT Chest with contrast (Pulmonary Angiogram) HISTORY: elevated dimer COMPARISON: Plain radiograph performed earlier the same day. TECHNIQUE: Axial computed tomography images were obtained of the chest in the pulmonary arterial phase of enhancement. Coronal and sagittal reformatted images were created and reviewed. Intravenous contrast dose: 100 mL Omnipaque 350 Radiation dose: Total exam DLP = 59.81 mGy-cm. This CT exam was performed using one or more of the following dose reduction techniques: Automated exposure control, adjustment of the mA and/or kV according to patient size, and/or use of iterative reconstruction technique. FINDINGS: PULMONARY ARTERIES: There are no filling defects in the pulmonary arteries to suggest acute pulmonary embolism. AORTA: No acute findings. No thoracic aortic aneurysm. LUNGS: The lungs are well inflated. There is multifocal linear atelectasis/scarring in the lower lobes. No nodule, mass or pulmonary consolidation. PLEURAL SPACES: No effusion or pneumothorax. HEART: No cardiomegaly. No significant pericardial effusion. LYMPH NODES: No lymphadenopathy. BONES, CHEST WALL: No acute fracture or destructive lesion. Mild dextroscoliosis and diffuse bone demineralization with multilevel degenerative changes. OTHER FINDINGS: There is a solitary gallstone. IMPRESSION: No CT evidence for acute pulmonary embolism. Multifocal linear atelectasis/scarring in the lower lobes. No focal consolidation, pleural effusion or pneumothorax. Cholelithiasis.
[2018-04-29 13:19] VITALS: BP 128/71; PULSE 72; O2SAT 100
[2018-04-29 14:27] VITALS: TEMP 98
== END 2018-04-29 13:30 | disposition home or self-care (01) ==
LOC: ED 09:10
DX: J44.9 Chronic obstructive pulmonary disease, unspecified (principal); I10 Essential (primary) hypertension; R51 Headache; F41.9 Anxiety disorder, unspecified; G47.00 Insomnia, unspecified
CPT/HCPCS: 70450; 71045; 71275; 80053; 81003; 82550; 83615; 83735; 83880; 84484; 85025; 85378; 85610; 85730; 93005; 99284; Q9967

== ENCOUNTER 2018-10-23 08:40 | Observation (INO) | payer MEDICARE ==
--- NOTE | 2018-10-23 09:37 | ED PDOC ---
Arrival/HPI - General Chief Complaint: Chest Pain Historian: Patient - History of Present Illness Narrative History of Present Illness (Text): 10/23/18 09:30 83 y/o male, pmh including htn//hld/copd/bph, nkda, c/o waking up with chest pain/pressure started this morning. Pt. stated that he woke up with chest pain and pressure on and off, resting for a "while", checked his BP with systolic 170s, woke up this morning with the chest pain and pressure unresolved and which bring himself to the ER. Pt. stated that he has bilateral leg swelling for a "long time" already. Pt. stated that the pain is nonradiating, squeezing sensation, unexertional, no palpitation, no night sweat, no rash, no dizziness, no change in vision, no tearing sensation, no other medical or psychological complaints. PMD: Dr. Calloway Past Medical History - Provider Review Nursing Documentation Reviewed: Yes - Infectious Disease Hx of Infectious Diseases: None - Cardiac Hx Cardiac Disorders: Yes Hx Hypertension: Yes - Pulmonary Hx Respiratory Disorders: Yes Hx Emphysema: Yes Other/Comment: Pt. has respiratory MD. - Neurological Hx Neurological Disorder: No - HEENT Hx HEENT Disorder: No Other/Comment: Pt. observed to have mild [place]. - Renal Hx Renal Disorder: No - Endocrine/Metabolic Hx Endocrine Disorders: No - Hematological/Oncological Hx Blood Disorders: No - Integumentary Hx Dermatological Disorder: No - Musculoskeletal/Rheumatological Hx Musculoskeletal Disorders: No Hx Falls: No - Gastrointestinal Hx Gastrointestinal Disorders: No - Genitourinary/Gynecological Hx Genitourinary Disorders: No - Psychiatric Hx Psychophysiologic Disorder: Yes Hx Anxiety: Yes Hx Substance Use: No - Anesthesia Hx Anesthesia: No Hx Anesthesia Reactions: No - Suicidal Assessment Feels Threatened In Home Enviroment: No Family/Social History - Physician Review Nursing Documentation Reviewed: Yes Family/Social History: Unknown Family HX Smoking Status: Never Smoked Hx Alcohol Use: No Hx Substance Use: No Hx Substance Use Treatment: No Allergies/Home Meds Allergies/Adverse Reactions: Allergies No Known Allergies Allergy (Verified 02/10/17 16:35) Home Medications: Home Meds Medication Instructions Recorded Confirmed Budesonide [Pulmicort Respules] 0.25 mg IH BID 08/21/12 04/29/18 Tiotropium [Spiriva] 18 mcg IH DAILY 08/21/12 04/29/18 Alprazolam [Xanax] 0.5 mg PO DAILY PRN 02/10/17 04/29/18 Escitalopram [Lexapro] 10 mg PO DAILY 04/29/18 04/29/18 Review of Systems - Review of Systems Constitutional: absent: Fatigue, Fevers Eyes: absent: Vision Changes ENT: absent: Hearing Changes Respiratory: absent: SOB, Cough Cardiovascular: Chest Pain, Edema Gastrointestinal: absent: Abdominal Pain, Diarrhea, Nausea, Vomiting Musculoskeletal: absent: Arthralgias, Back Pain Skin: absent: Rash, Pruritis Neurological: absent: Headache, Dizziness Psychiatric: absent: Anxiety, Depression, Suicidal Ideation Physical Exam Vital Signs Reviewed: Yes Vital Signs Temp Pulse Resp BP Pulse Ox 10/23/18 08:58 97.8 F 61 18 154/79 H 98 Temperature: Afebrile Blood Pressure: Hypertensive Pulse: Regular Respiratory Rate: Normal Appearance: Positive for: Well-Appearing, Non-Toxic, Comfortable Pain Distress: Moderate Mental Status: Positive for: Alert and Oriented X 3 - Systems Exam Head: Present: Atraumatic, Normocephalic Pupils: Present: PERRL Extroacular Muscles: Present: EOMI Conjunctiva: Present: Normal Mouth: Present: Moist Mucous Membranes Neck: Present: Normal Range of Motion Respiratory/Chest: Present: Clear to Auscultation, Good Air Exchange. No: Respiratory Distress, Accessory Muscle Use Cardiovascular: Present: Regular Rate and Rhythm, Normal S1, S2, Other (Edema 2+ on the RLE and 1+LLE). No: Murmurs Abdomen: No: Tenderness, Distention, Peritoneal Signs Back: Present: Normal Inspection Upper Extremity: Present: Normal Inspection. No: Cyanosis, Edema Lower Extremity: Present: Normal Inspection. No: Edema Neurological: Present: GCS=15, CN II-XII Intact, Speech Normal Skin: Present: Warm, Dry, Normal Color. No: Rashes Psychiatric: Present: Alert, Oriented x 3, Normal Insight, Normal Concentration Medical Decision Making ED Course and Treatment: 10/23/18 09:42 -Labs -EKG -Chest xray -Morphine/aspirin/nitro -Observe and reassess 10/23/18 13:08 -EKG: SR @ 62 BPM, no ST elevation or depression, no T wave inversion, 1st degree AV block -Chest xray No active disease. -Labs are nonsignificant -Trop is negative 1st set -BNP within normal limit -Dimer 273, CTA ordered -Bilateral LE: as per preliminary report, no acute DVT -CTA show Unremarkable CT pulmonary angiogram. No pulmonary embolus. -HEART score is moderate, he will need admission for 24 hours troponin and possibly operations manager consult. -I discussed all labs and radiology results with the patient, recommend admission for at least trop. -Pt.'s symptoms improved with the nitro and aspirin, concerning for cardiac chest pain. 10/23/18 13:17 -I spoke to the hospitalist, Dr. Ojeda, discussed about the labs/radiology results, concerning for ACS syndrome, agreed to admit the patient for at least troponin trending. - RAD Interpretation Radiology Orders: Bilateral LE Venuous doppler: as per preliminary report, no acute DVT Chest xray: Date of service: 10/23/2018 HISTORY: chest pain COMPARISON: 04/29/2018 TECHNIQUE: 1 view obtained. FINDINGS: LUNGS: No active pulmonary disease. PLEURA: No significant pleural effusion identified, no pneumothorax apparent. CARDIOVASCULAR: No aortic atherosclerotic calcification present. Normal cardiac size. No pulmonary vascular congestion. OSSEOUS STRUCTURES: No significant abnormalities. VISUALIZED UPPER ABDOMEN: Normal. OTHER FINDINGS: None. IMPRESSION: No active disease. CTA: Date of service: 10/23/2018 PROCEDURE: CT Chest with contrast (Pulmonary Angiogram) HISTORY: chest pain COMPARISON: None available. TECHNIQUE: Axial computed tomography images were obtained of the chest in the pulmonary arterial phase of enhancement. Coronal and sagittal reformatted images were created and reviewed. Intravenous contrast dose: Radiation dose: Total exam DLP = 455.83 mGy-cm. This CT exam was performed using one or more of the following dose reduction techniques: Automated exposure control, adjustment of the mA and/or kV according to patient size, and/or use of iterative reconstruction technique. FINDINGS: PULMONARY ARTERIES: Unremarkable. No pulmonary embolism. AORTA: No acute findings. No thoracic aortic aneurysm. Aortic calcification LUNGS: Unremarkable. No nodule, mass or pulmonary consolidation. PLEURAL SPACES: Unremarkable. No effusion or pneumothorax. HEART: Unremarkable. No cardiomegaly. No significant pericardial effusion. LYMPH NODES: No lymphadenopathy. BONES, CHEST WALL: Unremarkable. No fracture or destructive lesion OTHER FINDINGS: Unremarkable. IMPRESSION: Unremarkable CT pulmonary angiogram. No pulmonary embolus. Lead Java Developer Architect: Radiologist - EKG Interpretation EKG Interpretation (Text): 10/23/18 09:43 -EKG: SR @ 62 BPM, no ST elevation or depression, no T wave inversion, 1st degree AV block Interpreted by ED Physician: Yes Type: 12 lead EKG - PA / HAND STEMMER / Resident Statement MD/DO has reviewed & agrees with the documentation as recorded. Disposition/Present on Arrival - Present on Arrival Any Indicators Present on Arrival: No History of DVT/PE: No History of Uncontrolled Diabetes: No Urinary Catheter: No History of Decub. Ulcer: No History Surgical Site Infection Following: None - Disposition Have Diagnosis and Disposition been Completed?: Yes Diagnosis: Chest pain at rest Disposition: HOSPITALIZED Disposition Time: 13:11 Patient Plan: Admission, Observation, Telemetry Patient Problems: Current Active Problems Problem Status Onset Chest pain at rest Acute Condition: GUARDED Discharge Instructions (ExitCare): Chest Pain (ED) Referrals: Coleman Calloway MD [Primary Care Provider] - Follow up with primary Forms: [employer] ([place])
[2018-10-23] MEDS ORDERED: Morphine 2 mg/ml ISec IVP STA (09:38)
[2018-10-23 10:12] LABS: BASO # 0.06 K/mm3 (0.0-2.0); BASO % 1.6 % (0.0-3.0); EOS # 0.2 (0.0-0.7); EOS % 5.9 % (1.5-5.0); HEMOGLOBIN 13.4 g/dL (14.0-18.0); LYMPH # 1.9 (1.2-3.4); LYMPH % 49.5 % (22.0-35.0); MEAN CELL VOLUME 101.3 fl (80.0-105.0); MEAN CORPUSCULAR HGB CONC 33.6 g/dl (31.0-37.0); MEAN PLATELET VOLUME 9.8 fl (7.0-11.0); MONO # 0.4 (0.1-0.6); MONO % 11.4 % (1.0-6.0); RBC 3.94 10^6/uL (3.5-6.1); RED CELL DISTRIBUTION WIDTH 13.7 % (11.5-14.5); WHITE BLOOD COUNT 3.8 10^3/uL (4.5-11.0)
--- NOTE | 2018-10-23 10:14 | RAD ---
Date of service: 10/23/2018 HISTORY: chest pain COMPARISON: 04/29/2018 TECHNIQUE: 1 view obtained. FINDINGS: LUNGS: No active pulmonary disease. PLEURA: No significant pleural effusion identified, no pneumothorax apparent. CARDIOVASCULAR: No aortic atherosclerotic calcification present. Normal cardiac size. No pulmonary vascular congestion. OSSEOUS STRUCTURES: No significant abnormalities. VISUALIZED UPPER ABDOMEN: Normal. OTHER FINDINGS: None. IMPRESSION: No active disease.
[2018-10-23 10:25] LABS: ALB/GLOB RATIO 1.2 (1.1-1.8); ALBUMIN 3.7 g/dL (3.0-4.8); ALT/SGPT 31 U/L (7-56); AST/SGOT 29 U/L (17-59); BLOOD UREA NITROGEN 12 mg/dL (7-21); CALCIUM 9.1 mg/dL (8.4-10.5); GFR NON-AFRICAN AMERICAN > 60
[2018-10-23 10:43] LABS: B-TYPE NATRIURETIC PEPTIDE 230 pg/mL (0-450); TROPONIN I < 0.01 ng/mL
[2018-10-23] MEDS ORDERED: Iohexol 350 MG/100 ML VIAL ONE (11:51)
--- NOTE | 2018-10-23 12:51 | CT ---
Date of service: 10/23/2018 PROCEDURE: CT Chest with contrast (Pulmonary Angiogram) HISTORY: chest pain COMPARISON: None available. TECHNIQUE: Axial computed tomography images were obtained of the chest in the pulmonary arterial phase of enhancement. Coronal and sagittal reformatted images were created and reviewed. Intravenous contrast dose: Radiation dose: Total exam DLP = 455.83 mGy-cm. This CT exam was performed using one or more of the following dose reduction techniques: Automated exposure control, adjustment of the mA and/or kV according to patient size, and/or use of iterative reconstruction technique. FINDINGS: PULMONARY ARTERIES: Unremarkable. No pulmonary embolism. AORTA: No acute findings. No thoracic aortic aneurysm. Aortic calcification LUNGS: Unremarkable. No nodule, mass or pulmonary consolidation. PLEURAL SPACES: Unremarkable. No effusion or pneumothorax. HEART: Unremarkable. No cardiomegaly. No significant pericardial effusion. LYMPH NODES: No lymphadenopathy. BONES, CHEST WALL: Unremarkable. No fracture or destructive lesion OTHER FINDINGS: Unremarkable. IMPRESSION: Unremarkable CT pulmonary angiogram. No pulmonary embolus.
--- NOTE | 2018-10-23 13:48 | CP.PCM.HP ---
<Sebas Nogueira - Last Filed: 10/23/18 15:20> History of Present Illness - History of Present Illness History of Present Illness: PGY-2 H&P for Dr Xavier Mr Hillman is a 83 year old male with a PMHx of COPD, HTN, ELDA (not using his bipap due to occasional sinusitis), anxiety who presents with chest pain starting over night and persisting into the morning, left-sided, pressure-like. He checked his blood pressure and said it was "in the 170s" however he did not take his morning dose of losartan and he was worried it would have dropped his BP too much. He also complained of head throbbing. He's had similar sx in the past related to his elevated blood pressure. His losartan was decreased in dose 1 week ago by his PMD. Additionally he complained of bloating that's been on/off for the past few years. He denied blurry vision, syncope. He had a stress test 1.5 years ago which was normal. PMHx: COPD, HTN, ELDA (not using his bipap due to occasional sinusitis), anxiety PSHx: bilateral inguinal hernia repair All: NKA Home meds: anloro ellipta inhaler once a day, losartan 50mg qd, xanax 0.5mg qd prn FamHx: denies SocialHx: denies smoking hx, social alcohol use, denies illicits PMD: Calloway Present on Admission - Present on Admission Any Indicators Present on Admission: No Review of Systems - Review of Systems All systems: reviewed and no additional remarkable complaints except (as stated in HPI) Past Patient History - Infectious Disease Hx of Infectious Diseases: None - Past Social History Smoking Status: Never Smoked - CARDIAC Hx Cardiac Disorders: Yes Hx Hypertension: Yes - PULMONARY Hx Respiratory Disorders: Yes Hx Emphysema: Yes Other/Comment: Pt. has respiratory MD. - NEUROLOGICAL Hx Neurological Disorder: No - HEENT Hx HEENT Problems: No Other/Comment: Pt. observed to have mild PAIUTE OF [place]. - RENAL Hx Chronic Kidney Disease: No - ENDOCRINE/METABOLIC Hx Endocrine Disorders: No - HEMATOLOGICAL/ONCOLOGICAL Hx Blood Disorders: No - INTEGUMENTARY Hx Dermatological Problems: No - MUSCULOSKELETAL/RHEUMATOLOGICAL Hx Musculoskeletal Disorders: No Hx Falls: No - GASTROINTESTINAL Hx Gastrointestinal Disorders: No - GENITOURINARY/GYNECOLOGICAL Hx Genitourinary Disorders: No - PSYCHIATRIC Hx Psychophysiologic Disorder: Yes Hx Anxiety: Yes Hx Substance Use: No - SURGICAL HISTORY Hx Herniorrhaphy: Yes - ANESTHESIA Hx Anesthesia: No Hx Anesthesia Reactions: No Meds Allergies/Adverse Reactions: Allergies Allergy/AdvReac Type Severity Reaction Status Date / Time No Known Allergies Allergy Verified 02/10/17 16:35 Physical Exam - Constitutional Appears: Well, Non-toxic, No Acute Distress - Head Exam Head Exam: ATRAUMATIC, NORMAL INSPECTION - Eye Exam Eye Exam: EOMI, Normal appearance, PERRL. absent: Scleral icterus - ENT Exam ENT Exam: Mucous Membranes Moist - Neck Exam Neck exam: Positive for: Full Rom, Normal Inspection. Negative for: Tenderness - Respiratory Exam Respiratory Exam: Clear to Auscultation Bilateral, NORMAL BREATHING PATTERN. absent: Rales, Rhonchi, Wheezes - Cardiovascular Exam Cardiovascular Exam: REGULAR RHYTHM, +S1, +S2, +S4. absent: Tachycardia, JVD, Systolic Murmur - GI/Abdominal Exam GI & Abdominal Exam: Normal Bowel Sounds, Soft. absent: Distended, Firm, Guarding, Tenderness - Extremities Exam Extremities exam: Positive for: normal capillary refill, pedal edema, pedal pulses present. Negative for: calf tenderness - Neurological Exam Neurological exam: Alert, CN II-XII Intact, Oriented x3 - Psychiatric Exam Psychiatric exam: Normal Affect, Normal Mood - Skin Skin Exam: Dry, Intact, Normal Color, Warm Results - Vital Signs Recent Vital Signs: Last Vital Signs Temp 97.8 F 10/23/18 08:58 Pulse 64 10/23/18 10:40 Resp 18 10/23/18 10:40 BP 157/62 H 10/23/18 10:40 Pulse Ox 99 10/23/18 10:40 - Labs Result Diagrams: 10/23/18 10:00 10/23/18 10:00 Labs: Laboratory Results - last 24 hr 10/23/18 10/23/18 10/23/18 10:00 10:00 10:30 WBC 3.8 L RBC 3.94 Hgb 13.4 L Hct 39.9 L MCV 101.3 MCH 34.0 MCHC 33.6 RDW 13.7 Plt Count 212 MPV 9.8 Neut % (Auto) 31.6 L Lymph % (Auto) 49.5 H Jessamine % (Auto) 11.4 H Eos % (Auto) 5.9 H Baso % (Auto) 1.6 Lymph # (Auto) 1.9 Jessamine # (Auto) 0.4 Eos # (Auto) 0.2 Baso # (Auto) 0.06 Absolute Neuts (auto) 1.19 L D-Dimer, Quantitative 273 H Sodium 142 Potassium 4.0 Chloride 105 Carbon Dioxide 30 Anion Gap 11 BUN 12 Creatinine 0.8 Est GFR ( Amer) > 60 Est GFR (Non-Af Amer) > 60 Random Glucose 88 Calcium 9.1 Magnesium 2.1 Total Bilirubin 0.4 AST 29 ALT 31 Alkaline Phosphatase 50 Troponin I < 0.01 NT-Pro-B Natriuret Pep 230 Total Protein 6.7 Albumin 3.7 Globulin 3.0 Albumin/Globulin Ratio 1.2 Assessment & Plan - Assessment and Plan (Free Text) Plan: Mr Hillman is a 83 year old male with a PMHx of COPD, HTN, ELDA (not using his bipap due to occasional sinusitis), anxiety who presents with chest pain starting over night and persisting into the morning, left-sided, pressure-like. He checked his blood pressure and said it was "in the 170s": #Chest Pain -rule out ACS, observe on telemetry -aspirin 325mg, morphine 2mg and nitro given in ED with relief of symptoms -trop negative x1 -EKG: SR @ 62 BPM, no ST elevation or depression, no T wave inversion, 1st degree AV block -cxr: No active disease -Stress test 01/2017: terminated due to pressure-like chest pain - no ST changes -f/u serial troponins, ekg, lipid panel, tsh -aspirin 81mg po qd -consulted cardiology Dr Hutchinson #Questionable Diastolic Dysfunction -does not appear to be in acute heart failure; does not take heart failure meds at home -Echo 01/2017: EF 55%, mild LVH, RVSP 24, grade III reversible restrictive diastolic dysfunction -cxr: No active disease -probnp: 230 -f/u echo -consulted cardiology Dr Hutchinson #LE Edema -D-dimer 273 -Bilateral LE US: as per preliminary report, no acute DVT -script writer did not appreciate LE edema, we'll follow-up the echo and see if there's diastolic dysfunction and discuss with cardio about starting diuretics if necessary #Elevated D-Dimer -CTA: Unremarkable CT pulmonary angiogram. No pulmonary embolus #Elevated BP -latest BP 118/67 -continue home med losartan for now and trend BP readings #Anxiety -continue home med xanax 0.5mg po prn #Bloating -once time dose simethicone 80mg once Seen and discussed with Dr Xavier Decision To Admit - Pt Status Changed To: Hospital Disposition Of: Inpatient Admission - Admit Certification Admit to Inpatient:: After my assessment, the patient will require hospitalization for at least two midnights. This is because of the severity of symptoms shown, intensity of services needed, and/or the medical risk in this patient being treated as an outpatient. - . Bed Request Type: Telemetry <Madeline Xavier - Last Filed: 10/23/18 17:04> Results - Vital Signs Recent Vital Signs: Last Vital Signs Temp 98.5 F 10/23/18 15:32 Pulse 70 10/23/18 16:18 Resp 18 10/23/18 16:18 BP 125/72 10/23/18 15:32 Pulse Ox 99 10/23/18 15:32 - Labs Result Diagrams: 10/23/18 10:00 10/23/18 10:00 Labs: Laboratory Results - last 24 hr 10/23/18 10/23/18 10/23/18 10:00 10:00 10:30 WBC 3.8 L RBC 3.94 Hgb 13.4 L Hct 39.9 L MCV 101.3 MCH 34.0 MCHC 33.6 RDW 13.7 Plt Count 212 MPV 9.8 Neut % (Auto) 31.6 L Lymph % (Auto) 49.5 H Jessamine % (Auto) 11.4 H Eos % (Auto) 5.9 H Baso % (Auto) 1.6 Lymph # (Auto) 1.9 Jess[place] # (Auto) 0.4 Eos # (Auto) 0.2 Baso # (Auto) 0.06 Absolute Neuts (auto) 1.19 L D-Dimer, Quantitative 273 H Sodium 142 Potassium 4.0 Chloride 105 Carbon Dioxide 30 Anion Gap 11 BUN 12 Creatinine 0.8 Est GFR ( Amer) > 60 Est GFR (Non-Af Amer) > 60 Random Glucose 88 Calcium 9.1 Magnesium 2.1 Total Bilirubin 0.4 AST 29 ALT 31 Alkaline Phosphatase 50 Troponin I < 0.01 NT-Pro-B Natriuret Pep 230 Total Protein 6.7 Albumin 3.7 Globulin 3.0 Albumin/Globulin Ratio 1.2 10/23/18 16:20 WBC RBC Hgb Hct MCV MCH MCHC RDW Plt Count MPV Neut % (Auto) Lymph % (Auto) Jessamine % (Auto) Eos % (Auto) Baso % (Auto) Lymph # (Auto) Jessamine # (Auto) Eos # (Auto) Baso # (Auto) Absolute Neuts (auto) D-Dimer, Quantitative Sodium Potassium Chloride Carbon Dioxide Anion Gap BUN Creatinine Est GFR ( Amer) Est GFR (Non-Af Amer) Random Glucose Calcium Magnesium Total Bilirubin AST ALT Alkaline Phosphatase Troponin I < 0.01 NT-Pro-B Natriuret Pep Total Protein Albumin Globulin Albumin/Globulin Ratio Attending/Attestation - Attestation I have personally seen and examined this patient.: Yes I have fully participated in the care of the patient.: Yes I have reviewed all pertinent clinical information: Yes Notes (Text): 10/23/18 17:00 83 year old male with past medical history of COPD, hypertension, and anxiety who presents with complaint of chest pain and elevated bloop pressure since this morning. D-dimer was slightly elevated but LE doppler and CT angio were negative. Will obtain serial cardiac enzymes to rule out ACS. Cardiology evaluation is requested and echocardiogram is ordered. Continue with aspirin and cozaar. Lipid panel ordered for AM. Patient is on xanax prn for anxiety. Madeline Xavier MD Hospitalist.
[2018-10-23] MEDS ORDERED: Albuterol-Ipratrop 3 mg / 0.5 (3 ml) UD IH PRN (15:20)
[2018-10-23] MEDS ORDERED: Simethicone 80 mg Chewtab PO ONE (15:28)
--- NOTE | 2018-10-23 16:10 | CARD ---
APPROVED REPORT Date of service: 10/23/2018 EKG Measurement Heart [id number] <Conclusion> Sinus rhythm with 1st degree AV block Otherwise normal ECG
[2018-10-23 16:39] VITALS: BMI 27.6
[2018-10-23] MEDS: Albuterol-Ipratrop 3 mg / 0.5 (3 ml) UD IH SCH (19:30)
[2018-10-24 00:57] VITALS: RESP 18
[2018-10-24 06:11] VITALS: TEMP 97.9; O2SAT 98
[2018-10-24 06:59] LABS: BASO # 0.01 K/mm3 (0.0-2.0); BASO % 0.2 % (0.0-3.0); EOS # 0.3 (0.0-0.7); EOS % 6.1 % (1.5-5.0); HEMOGLOBIN 12.7 g/dL (14.0-18.0); LYMPH # 1.8 (1.2-3.4); MEAN CELL VOLUME 100.8 fl (80.0-105.0); MEAN CORPUSCULAR HEMOGLOBIN 33.2 pg (25.0-35.0); MEAN PLATELET VOLUME 9.5 fl (7.0-11.0); MONO # 0.4 (0.1-0.6); MONO % 10.4 % (1.0-6.0); RBC 3.82 10^6/uL (3.5-6.1); RED CELL DISTRIBUTION WIDTH 13.8 % (11.5-14.5); WHITE BLOOD COUNT 4.2 10^3/uL (4.5-11.0)
[2018-10-24 07:15] LABS: ALB/GLOB RATIO 1.2 (1.1-1.8); ALBUMIN 3.2 g/dL (3.0-4.8); ALT/SGPT 28 U/L (7-56); AST/SGOT 36 U/L (17-59); BLOOD UREA NITROGEN 13 mg/dL (7-21); CALCIUM 8.7 mg/dL (8.4-10.5); GFR NON-AFRICAN AMERICAN > 60; HDL CHOLESTEROL 54 mg/dL (29-60)
[2018-10-24 07:26] LABS: LDL CHOLESTEROL 94 mg/dL (0-129)
[2018-10-24] MEDS: Albuterol-Ipratrop 3 mg / 0.5 (3 ml) UD IH SCH (07:57)
[2018-10-24 12:04] VITALS: BP 126/73; PULSE 68
--- NOTE | 2018-10-24 12:41 | CP.PCM.DIS ---
<Neal Chicas - Last Filed: 10/24/18 15:00> Provider - Provider Date of Admission: 10/23/18 13:16 Attending physician: Madeline Xavier MD Primary care physician: Coleman Calloway MD Consults: 10/23/18 14:58 Cardiology Consult Routine Comment: Consulting Provider: Sherri Hutchinson Consulting Physician: Sherri Hutchinson Reason for Consult: chest pain; htn urgency; pt known to you Time Spent in preparation of Discharge (in minutes): 60 Hospital Course - Lab Results Lab Results: Most Recent Lab Values WBC 4.2 10^3/uL (4.5-11.0) L 10/24/18 06:00 RBC 3.82 10^6/uL (3.5-6.1) 10/24/18 06:00 Hgb 12.7 g/dL (14.0-18.0) L 10/24/18 06:00 Hct 38.5 % (42.0-52.0) L 10/24/18 06:00 MCV 100.8 fl (80.0-105.0) 10/24/18 06:00 MCH 33.2 pg (25.0-35.0) 10/24/18 06:00 MCHC 33.0 g/dl (31.0-37.0) 10/24/18 06:00 RDW 13.8 % (11.5-14.5) 10/24/18 06:00 Plt Count 190 10^3/uL (120.0-450.0) 10/24/18 06:00 MPV 9.5 fl (7.0-11.0) 10/24/18 06:00 Neut % (Auto) 40.3 % (50.0-68.0) L 10/24/18 06:00 Lymph % (Auto) 43.0 % (22.0-35.0) H 10/24/18 06:00 Allen % (Auto) 10.4 % (1.0-6.0) H 10/24/18 06:00 Eos % (Auto) 6.1 % (1.5-5.0) H 10/24/18 06:00 Baso % (Auto) 0.2 % (0.0-3.0) 10/24/18 06:00 Lymph # (Auto) 1.8 (1.2-3.4) 10/24/18 06:00 Allen # (Auto) 0.4 (0.1-0.6) 10/24/18 06:00 Eos # (Auto) 0.3 (0.0-0.7) 10/24/18 06:00 Baso # (Auto) 0.01 K/mm3 (0.0-2.0) 10/24/18 06:00 Absolute Neuts (auto) 1.70 (1.4-6.5) 10/24/18 06:00 D-Dimer, Quantitative 273 ng/mlDDU (0-243) H 10/23/18 10:30 Sodium 142 mmol/L (132-148) 10/24/18 06:00 Potassium 3.9 mmol/L (3.6-5.0) 10/24/18 06:00 Chloride 107 mmol/L (98-107) 10/24/18 06:00 Carbon Dioxide 29 mmol/L (21-33) 10/24/18 06:00 Anion Gap 10 (10-20) 10/24/18 06:00 BUN 13 mg/dL (7-21) 10/24/18 06:00 Creatinine 0.8 mg/dl (0.8-1.5) 10/24/18 06:00 Est GFR ( Amer) > 60 10/24/18 06:00 Est GFR (Non-Af Amer) > 60 10/24/18 06:00 Random Glucose 85 mg/dL (70-110) 10/24/18 06:00 Calcium 8.7 mg/dL (8.4-10.5) 10/24/18 06:00 Magnesium 2.1 mg/dL (1.7-2.2) 10/23/18 10:00 Total Bilirubin 0.5 mg/dL (0.2-1.3) 10/24/18 06:00 AST 36 U/L (17-59) 10/24/18 06:00 ALT 28 U/L (7-56) 10/24/18 06:00 Alkaline Phosphatase 50 U/L (38-126) 10/24/18 06:00 Troponin I < 0.01 ng/mL 10/23/18 21:30 NT-Pro-B Natriuret Pep 230 pg/mL (0-450) 10/23/18 10:00 Total Protein 5.9 g/dL (5.8-8.3) 10/24/18 06:00 Albumin 3.2 g/dL (3.0-4.8) 10/24/18 06:00 Globulin 2.7 gm/dL 10/24/18 06:00 Albumin/Globulin Ratio 1.2 (1.1-1.8) 10/24/18 06:00 Triglycerides 79 mg/dL (35-160) 10/24/18 06:00 Cholesterol 168 mg/dL (130-200) 10/24/18 06:00 LDL Cholesterol Direct 94 mg/dL (0-129) 10/24/18 06:00 HDL Cholesterol 54 mg/dL (29-60) 10/24/18 06:00 TSH 3rd Generation 1.42 mIU/mL (0.46-4.68) 10/24/18 06:00 - Hospital Course Hospital Course: 83 year old male with a PMHx of COPD, HTN, EDLA, anxiety who presented to the ED with left-sided, pressure-like chest pain starting over night and persisting into the morning. Home BP check was said to be "in the 170s" however patient stated that he did not take his morning dose of Losartan thinking it would drop his BP too much. He's had similar sx in the past related to elevated blood pressure. Losartan was recently decreased in dose 1 week ago by his PMD (Dr. Calloway). Patient also complained of head throbbing, as well as bloating that's been on/off for the past few years. Patient was given ASA 325mg, morphine 2mg, and nitro in the ED with relief of symptoms. Patient was admitted to hospitalist service to rule out ACS. In the ED, patient's BP was 176/76. Cardiology was consulted for hypertensive urgency and patient received a repeat ECHO. Lasting Room Machine Operator recommended patient be discharged on HCTZ and aspirin. EKG ordered shown sinus rhythm at [address] elevation or depression, no T wave inversion, 1st AV block. CXR showed no active disease. Troponin x3 negative, BNP WNL, D Dimer 273, but LE Doppler and CTA unremarkable with no evidence of pulmonary embolus. Patient was given one time dose of simethicone 80mg for the bloating. Patient to follow up with Dr. Hutchinson for outpatient stress test and results of ECHO. Patient instructed to start new medication for HCTZ 12.5mg QD and Aspirin 81mg QD and resume home medications. Patient verbalized and acknowledged understanding of treatment plan. All questions and concerns were addressed. Above is a brief summary, for detailed hospital course please refer to medical records. Discharge Exam - Head Exam Head Exam: ATRAUMATIC, NORMAL INSPECTION - Eye Exam Eye Exam: EOMI - ENT Exam ENT Exam: Mucous Membranes Moist - Respiratory Exam Respiratory Exam: NORMAL BREATHING PATTERN. absent: Wheezes, Respiratory Distress - Cardiovascular Exam Cardiovascular Exam: REGULAR RHYTHM. absent: Tachycardia, Systolic Murmur - GI/Abdominal Exam GI & Abdominal Exam: Normal Bowel Sounds, Soft. absent: Tenderness - Extremities Exam Extremities exam: normal inspection, pedal pulses present - Neurological Exam Neurological exam: Alert, Oriented x3 - Psychiatric Exam Psychiatric exam: Normal Affect, Normal Mood - Skin Skin Exam: Dry, Intact, Normal Color, Warm Discharge Plan - Discharge Medications Prescriptions: Aspirin [Adult Low Dose Aspirin EC] 81 mg PO DAILY #30 tablet. Hydrochlorothiazide [Microzide] 12.5 mg PO DAILY 30 Days #30 cap - Follow Up Plan Condition: GUARDED Disposition: HOME/ ROUTINE Instructions: Chest Pain, High Blood Pressure (DC) Additional Instructions: Follow up with your primary care doctor for this hospital stay and macrocytic anemia. Follow up with Lasting Room Machine Operator, Dr. Hutchinson, for outpatient stress test on 10/30/2018. Please don't drink or eat anything past midnight the day before your stress test. You had ECHO done, pending read, when following up with Dr. Hutchinson he will have the results for you. You have been prescribed a new medication for your high blood pressure: Hydrochlorothiazide 12.5mg PO daily Aspirin 81mg PO daily Please resume home medications. Please take medications as prescribed. If symptoms worsen, promptly return to your nearest emergency department. Referrals: Sherri Hutchinson MD [Staff Provider] - 1 Week Coleman Calloway MD [Primary Care Provider] - 1 Week <Madeline Xavier - Last Filed: 10/24/18 15:15> Provider - Provider Date of Admission: 10/23/18 13:16 Attending physician: Madeline Xavier MD Primary care physician: Coleman Calloway MD Consults: 10/23/18 14:58 Cardiology Consult Routine Comment: Consulting Provider: Sherri Hutchinson Consulting Physician: Sherri Hutchinson Reason for Consult: chest pain; htn urgency; pt known to [facility] Hospital Course - Lab Results Lab Results: Most Recent Lab Values WBC 4.2 10^3/uL (4.5-11.0) L 10/24/18 06:00 RBC 3.82 10^6/uL (3.5-6.1) 10/24/18 06:00 Hgb 12.7 g/dL (14.0-18.0) L 10/24/18 06:00 Hct 38.5 % (42.0-52.0) L 10/24/18 06:00 MCV 100.8 fl (80.0-105.0) 10/24/18 06:00 MCH 33.2 pg (25.0-35.0) 10/24/18 06:00 MCHC 33.0 g/dl (31.0-37.0) 10/24/18 06:00 RDW 13.8 % (11.5-14.5) 10/24/18 06:00 Plt Count 190 10^3/uL (120.0-450.0) 10/24/18 06:00 MPV 9.5 fl (7.0-11.0) 10/24/18 06:00 Neut % (Auto) 40.3 % (50.0-68.0) L 10/24/18 06:00 Lymph % (Auto) 43.0 % (22.0-35.0) H 10/24/18 06:00 Allen % (Auto) 10.4 % (1.0-6.0) H 10/24/18 06:00 Eos % (Auto) 6.1 % (1.5-5.0) H 10/24/18 06:00 Baso % (Auto) 0.2 % (0.0-3.0) 10/24/18 06:00 Lymph # (Auto) 1.8 (1.2-3.4) 10/24/18 06:00 Allen # (Auto) 0.4 (0.1-0.6) 10/24/18 06:00 Eos # (Auto) 0.3 (0.0-0.7) 10/24/18 06:00 Baso # (Auto) 0.01 K/mm3 (0.0-2.0) 10/24/18 06:00 Absolute Neuts (auto) 1.70 (1.4-6.5) 10/24/18 06:00 D-Dimer, Quantitative 273 ng/mlDDU (0-243) H 10/23/18 10:30 Sodium 142 mmol/L (132-148) 10/24/18 06:00 Potassium 3.9 mmol/L (3.6-5.0) 10/24/18 06:00 Chloride 107 mmol/L (98-107) 10/24/18 06:00 Carbon Dioxide 29 mmol/L (21-33) 10/24/18 06:00 Anion Gap 10 (10-20) 10/24/18 06:00 BUN 13 mg/dL (7-21) 10/24/18 06:00 Creatinine 0.8 mg/dl (0.8-1.5) 10/24/18 06:00 Est GFR ( Amer) > 60 10/24/18 06:00 Est GFR (Non-Af Amer) > 60 10/24/18 06:00 Random Glucose 85 mg/dL (70-110) 10/24/18 06:00 Calcium 8.7 mg/dL (8.4-10.5) 10/24/18 06:00 Magnesium 2.1 mg/dL (1.7-2.2) 10/23/18 10:00 Total Bilirubin 0.5 mg/dL (0.2-1.3) 10/24/18 06:00 AST 36 U/L (17-59) 10/24/18 06:00 ALT 28 U/L (7-56) 10/24/18 06:00 Alkaline Phosphatase 50 U/L (38-126) 10/24/18 06:00 Troponin I < 0.01 ng/mL 10/23/18 21:30 NT-Pro-B Natriuret Pep 230 pg/mL (0-450) 10/23/18 10:00 Total Protein 5.9 g/dL (5.8-8.3) 10/24/18 06:00 Albumin 3.2 g/dL (3.0-4.8) 10/24/18 06:00 Globulin 2.7 gm/dL 10/24/18 06:00 Albumin/Globulin Ratio 1.2 (1.1-1.8) 10/24/18 06:00 Triglycerides 79 mg/dL (35-160) 10/24/18 06:00 Cholesterol 168 mg/dL (130-200) 10/24/18 06:00 LDL Cholesterol Direct 94 mg/dL (0-129) 10/24/18 06:00 HDL Cholesterol 54 mg/dL (29-60) 10/24/18 06:00 TSH 3rd Generation 1.42 mIU/mL (0.46-4.68) 10/24/18 06:00 Attending/Attestation - Attestation I have personally seen and examined this patient.: Yes I have fully participated in the care of the patient.: Yes I have reviewed all pertinent clinical information, including history, physical exam and plan: Yes Notes (Text): 10/24/18 15:09 83 year old male with past medical history of COPD, hypertension, and anxiety who presented with complaint of chest pain and elevated bloop pressure, now resolved. D-dimer was slightly elevated but LE doppler and CT angio were negative. Serial cardiac enzymes were negative and ACS was ruled out. Cardiology evaluation was appreciated who recommended to add HCTZ for hypertension. Echocardiogram was also done. Patient is discharged home to follow up with pmd. Follow up with cardiology for outpatient stress test. He is on cozaar and HCTZ for hypertension. Instructed to monitor blood pressure at home and hold BP meds if low. He follows up with Dr. Sanz for hypertension as well. Madeline Xavier MD Hospitalist.
--- NOTE | 2018-10-24 15:34 | CON ---
DATE: 10/24/2018 LOCATION: Room 263, bed 2. REASON FOR CONSULTATION: Chest pain. HISTORY OF PRESENT ILLNESS: The patient is an 83-year-old male with past medical history of COPD; hypertension; obstructive sleep apnea, not using BiPAP; anxiety; who presented to the emergency room with 2 weeks' history of chest pain like pressure, but it is worse in the morning, it wakes him up from sleep and as the day goes on and he is walking around, pain gets much less and then he goes to sleep and then again it starts processing mgr, it wakes him up and it does not get worse by exertion. Actually, when he is up and around, it gets much less. His blood pressure at home was also elevated. On 02/11/2017, the patient had a stress test which was negative, his normal ejection fraction was 76%. On 02/11/2017, the patient also had echocardiogram which showed normal size LV, mild LVH, normal LV systolic function with ejection fraction of 55-60%, trace to mild mitral regurgitation, RVSP was only 24 mmHg. PAST MEDICAL HISTORY: Positive for COPD, hypertension, obstructive sleep apnea, and anxiety. PAST SURGICAL HISTORY: The patient had bilateral inguinal hernia surgery. ALLERGIES: THE PATIENT DENIES ANY ALLERGY. HOME MEDICATIONS: The patient was on losartan, Xanax inhaler. FAMILY HISTORY: Not significant. PERSONAL HISTORY: Denies smoking. Denies alcohol abuse. Denies any illicit drugs. REVIEW OF SYSTEMS: All the systems reviewed, positive mentioned in the history, others are negative. PHYSICAL EXAMINATION VITAL SIGNS: Blood pressure 126/73, respirations 18, pulse 68, and temperature 97.9. HEENT: Head is normocephalic. Eyes, pupils normal. Conjunctivae normal. Nose and throat normal. NECK: JVP low. Carotids equal. THORAX: AP diameter normal. LUNGS: Clear. CARDIOVASCULAR: S1 and S2. ABDOMEN: Soft. No tenderness. No organomegaly. Bowel sounds normal. EXTREMITIES: No clubbing. No cyanosis. LABORATORY DATA: Showed WBC 4.2, hemoglobin 12.7, hematocrit 38.5, and platelets 190. Troponin x4 was negative. Sodium 142, potassium 3.9, BUN 13, creatinine 0.8. AST and ALT normal. Total protein and albumin normal. Chest x-ray, no active disease. CT angio of the lung, negative for pulmonary embolism. DIAGNOSES: Chest pain, most likely noncardiac, it has been there 2 weeks day and night and gets worse during sleep and gets better when he is up and around, it was suggestive of . He also complains of bloating of the stomach. Chronic obstructive pulmonary disease, hypertension, obstructive sleep apnea. PLAN: Continue losartan 50 mg daily, aspirin 81 mg daily, DuoNeb hand nebulizer therapy, Xanax 0.5 mg p.o. daily p.r.n. b.i.d. The patient will be also taking Protonix 40 mg daily. The patient is going to have echocardiogram today and the patient will be scheduled for stress test as outpatient. We will follow with you. Sherri Kruger MD
--- NOTE | 2018-10-24 20:49 | CARD ---
APPROVED REPORT Date of service: 10/24/2018 EKG Measurement Heart [id number] <Conclusion> Sinus rhythm with 1st degree AV block Otherwise normal ECG
--- NOTE | 2018-10-24 22:36 | CARD ---
APPROVED REPORT Date of service: 10/24/2018 EXAM: Two-dimensional and M-mode echocardiogram with Doppler and color Doppler. INDICATION Chest Pain 2D DIMENSIONS Left Atrium (2D)4.6 (1.6-4.0cm)IVSd1.2 (0.7-1.1cm) LVDd3.8 (3.9-5.9cm)PWd1.3 (0.7-1.1cm) LVDs2.5 (2.5-4.0cm)FS (%) 34.4 % LVEF (%)64.2 (>50%) M-Mode DIMENSIONS Aortic Root3.10 (2.2-3.7cm)Aortic Cusp Exc.1.70 (1.5-2.0cm) Aortic Valve AoV Peak Snffzjeg817.0cm/Kassandra Peak GR.6mmHg Mitral Valve MV E Bwivific53.8cm/sMV A Bzscccks783.0cm/sE/A ratio0.8 TDI E/Lateral E'0.0E/Medial E'0.0 Tricuspid Valve TR Peak [id number]/sRAP [id number] Peak Gr.20mmHg [id number] LEFT VENTRICLE The left ventricle is normal size. The left ventricular function is normal. The left ventricular ejection fraction is within the normal range.Ej.Fr: 64%. RIGHT VENTRICLE The right ventricle is normal size. The right ventricular systolic function is normal. ATRIA Left Atrium shows Mild Enlargement. The right atrium size is normal. AORTIC VALVE The aortic valve is normal in structure. MITRAL VALVE The mitral valve is normal in structure. TRICUSPID VALVE The tricuspid valve is normal in structure. There is mild tricuspid regurgitation. RVSP: 30mm Hg. PERICARDIAL EFFUSION There is no pericardial effusion. <Conclusion> The left ventricle is normal size LV Shows Mild Hypertrophy.LV Systolic Function Normal. LV Ej.Fr: 64%. The right ventricle is normal size. The right ventricular systolic function is normal. Left Atrium shows Mild Enlargement. The right atrium size is normal. The aortic valve is normal in structure. The mitral valve is normal in structure. The tricuspid valve is normal in structure. There is mild tricuspid regurgitation. RVSP: 30mm Hg. There is no pericardial effusion.
== END 2018-10-24 15:29 | disposition home or self-care (01) ==
LOC: ED 08:40 → ERH 13:16 → 2RNO 15:29
PROVIDERS: ADMIT Hospitalist; ATTEND Internal Medicine
DX: R07.9 Chest pain, unspecified (principal); I16.0 Hypertensive urgency; E78.5 Hyperlipidemia, unspecified; G47.33 Obstructive sleep apnea (adult) (pediatric); J43.9 Emphysema, unspecified; F41.9 Anxiety disorder, unspecified; N40.0 Benign prostatic hyperplasia without lower urinary tract symptoms; R14.0 Abdominal distension (gaseous)
CPT/HCPCS: 36415; 71045; 71275; 80053; 80061; 83735; 83880; 84443; 84484; 85025; 85378; 93005; 93306; 93970; 94640; 94760; 96374; 97161; 99285; G0378; G8978; G8979; G8980; J2270; Q9967

== ENCOUNTER 2018-11-03 06:54 | Outpatient (CLI) | payer MEDICARE | END 2018-11-03 06:55 | disposition home or self-care (01) | LOC: CARDIO 06:54 ==

== ENCOUNTER 2018-12-19 11:09 | Outpatient (CLI) | payer MEDICARE | END 2018-12-19 11:10 | disposition home or self-care (01) | LOC: LAB 11:09 ==

== ENCOUNTER 2018-12-24 12:40 | Outpatient (CLI) | payer MEDICARE | END 2018-12-24 12:41 | disposition home or self-care (01) | LOC: RAD 12:40 ==